=== PATIENT | female | born 1980 | race Caucasian/White ===

== ENCOUNTER → 2018-11-08 15:28 | Outpatient (CLI) | payer OTHER, SELFPAY ==
--- NOTE | 2018-11-08 | DI.MG.S_ITS ---
BILATERAL DIGITAL SCREENING MAMMOGRAM 3D/2D WITH CAD: 11/08/2018 CLINICAL: Routine screening. Baseline exam. No prior exams were available for comparison. The tissue of both breasts is heterogeneously dense. This may lower the sensitivity of mammography. Current study was also evaluated with a Computer Aided Detection (CAD) system. There is an asymmetry in the left breast posterior depth lateral region seen on the craniocaudal view only. There also is an asymmetry in the left breast middle depth superior region seen on the mediolateral oblique view only. No other significant masses, calcifications, or other findings are seen in either breast. IMPRESSION: INCOMPLETE: NEEDS ADDITIONAL IMAGING EVALUATION 1) The asymmetry in the left breast posterior depth lateral region seen on the craniocaudal view only is indeterminate. Additional views with possible ultrasound are recommended. 2) The asymmetry in the left breast middle depth superior region seen on the mediolateral oblique view only is indeterminate. Additional views with possible ultrasound are recommended. This exam was interpreted at Station ID: [id number]. NOTE: For mammograms, a report in lay terms will be sent to the patient. Approximately 15% of breast malignancies will not be visualized mammographically. In the management of a palpable breast mass, a negative mammogram must not discourage biopsy of a clinically suspicious lesion. Electronically Signed By: Zurdo Huertas M.D. ecl/:11/09/2018 04:27:34 letter sent: Additional Imaging Needed ACR BI-RADS Category 0: Incomplete 3340F
== END ==
PROVIDERS: PCP Family Medicine; Visit Provider Family Medicine
DX: Z12.31 Encounter for screening mammogram for malignant neoplasm of breast (principal)
CPT/HCPCS: 77063; 77067

== ENCOUNTER → 2018-11-28 14:42 | Outpatient (CLI) | payer OTHER, SELFPAY ==
--- NOTE | 2018-11-28 14:45 | DI.US.S_ITS ---
LIMITED ULTRASOUND OF LEFT BREAST: 11/28/2018 CLINICAL: Patient returns today to evaluate an architectural distortion in the left breast. Comparison is made to exams dated: 11/28/2018 mammogram and 11/08/2018 mammogram - [facility]. Real-time ultrasound of the left breast upper outer quadrant was performed on the area of interest. IMPRESSION: PROBABLY BENIGN There is no abnormality seen in the left breast to correspond with the mammography findings in the upper outer quadrant. A follow-up mammogram in 6 months is recommended to demonstrate stability of the posterior left mammographic finding. This exam was interpreted at Station ID: [id number]. Electronically Signed By: Jagdeep Sellers M.D. ddp/:11/28/2018 18:02:12 letter sent: Followup Recommended Ultrasound BI-RADS: 3 Probably benign
--- NOTE | 2018-11-28 14:45 | DI.MG.S_ITS ---
UNILATERAL LEFT DIGITAL DIAGNOSTIC MAMMOGRAM 3D/2D WITH ADDITIONAL VIEWS: 11/28/2018 CLINICAL: Additional evaluation requested from prior study. Comparison is made to exam dated: 11/08/2018 [facility]. The tissue of left breast is heterogeneously dense. This may lower the sensitivity of mammography. There is an irregular equal density asymmetry with an indistinct margin in the left breast posterior depth lateral region seen on the craniocaudal view only. This is less prominent. There also is an oval equal density asymmetry with an indistinct margin in the left breast middle depth superior region seen on the mediolateral oblique view only. This is less prominent. No other significant masses or calcifications are seen in the breast. IMPRESSION: INCOMPLETE: NEEDS ADDITIONAL IMAGING EVALUATION The irregular equal density asymmetry in the left breast posterior depth lateral region seen on the craniocaudal view only is indeterminate. An ultrasound is recommended. The oval equal density asymmetry in the left breast middle depth superior region seen on the mediolateral oblique view only is indeterminate. An ultrasound is recommended. This exam was interpreted at Station ID: [id number]. NOTE: For mammograms, a report in lay terms will be sent to the patient. Approximately 15% of breast malignancies will not be visualized mammographically. In the management of a palpable breast mass, a negative mammogram must not discourage biopsy of a clinically suspicious lesion. Electronically Signed By: Jagdeep mack/yvette:11/28/2018 15:08:39 ACR BI-RADS Category 0: Incomplete [id number]
== END ==
PROVIDERS: PCP Family Medicine; Visit Provider Family Medicine
DX: R92.8 Other abnormal and inconclusive findings on diagnostic imaging of breast (principal); N64.89 Other specified disorders of breast
CPT/HCPCS: 76642; 77065; G0279

== ENCOUNTER → 2019-10-28 13:14 | Outpatient (CLI) | payer OTHER, SELFPAY ==
--- NOTE | 2019-10-28 13:20 | DI.MG.S_ITS ---
BILATERAL DIGITAL DIAGNOSTIC MAMMOGRAM 3D/2D SHORT-TERM FOLLOW-UP: 10/28/2019 CLINICAL: Patient returns for a 6 month follow up of the left breast, due for bilateral imaging. Comparison is made to exams dated: 11/28/2018 mammogram and 11/08/2018 mammogram - [facility]. The tissue of both breasts is heterogeneously dense. This may lower the sensitivity of mammography. There is an irregular equal density asymmetry with an indistinct margin in the left breast posterior depth lateral region seen on the craniocaudal view only. This is more prominent. There also is an oval equal density asymmetry with an indistinct margin in the left breast middle depth superior region seen on the mediolateral oblique view only. This is more prominent. No other significant masses, calcifications, or other findings are seen in either breast. IMPRESSION: INCOMPLETE: NEEDS ADDITIONAL IMAGING EVALUATION The irregular equal density asymmetry in the left breast posterior depth lateral region seen on the craniocaudal view only is indeterminate. Targeted ultrasound is recommended and will immediately follow. The oval equal density asymmetry in the left breast middle depth superior region seen on the mediolateral oblique view only is indeterminate. Targeted ultrasound is recommended and will immediately follow. This exam was interpreted at Station ID: [id number]. NOTE: For mammograms, a report in lay terms will be sent to the patient. Approximately 15% of breast malignancies will not be visualized mammographically. In the management of a palpable breast mass, a negative mammogram must not discourage biopsy of a clinically suspicious lesion. Electronically Signed By: Kendrick Yost M.D. slc/:10/28/2019 13:51:29 ACR BI-RADS Category 0: Incomplete 3340F
--- NOTE | 2019-10-28 13:20 | DI.US.S_ITS ---
LIMITED ULTRASOUND OF LEFT BREAST: 10/28/2019 CLINICAL: Patient returns today to evaluate a focal asymmetry in the left breast. Comparison is made to exams dated: 11/28/2018 ultrasound, 11/28/2018 mammogram, 11/08/2018 mammogram, and 10/28/2019 mammogram - [facility]. Color flow and real-time ultrasound of the left breast upper outer quadrant were performed. Antonio scale images of the real-time examination were reviewed. No significant abnormalities were seen sonographically in the left breast upper outer quadrant in the region of the asymmetries seen on mammogram. IMPRESSION: PROBABLY BENIGN No sonographic evidence of malignancy. Exam findings were conveyed to the patient by the cloth bale header. A follow-up mammogram and possible ultrasound in 6 months is recommended to demonstrate stability. This exam was interpreted at Station ID: [id number]. Electronically Signed By: Kendrick Yost M.D. slc/:10/28/2019 14:10:16 letter sent: Followup Recommended Ultrasound BI-RADS: 3 Probably benign
== END ==
PROVIDERS: PCP Family Medicine; Referring Provider Family Medicine; Visit Provider Family Medicine
DX: R92.8 Other abnormal and inconclusive findings on diagnostic imaging of breast (principal); N64.89 Other specified disorders of breast
CPT/HCPCS: 76642; 77066; G0279

== ENCOUNTER → 2020-06-18 14:28 | Outpatient (CLI) | payer OTHER, SELFPAY ==
--- NOTE | 2020-06-18 14:29 | DI.MG.S_ITS ---
UNILATERAL LEFT DIGITAL DIAGNOSTIC MAMMOGRAM 3D/2D SHORT-TERM FOLLOW-UP: 06/18/2020 CLINICAL: Short term follow up for the left breast. Comparison is made to exams dated: 10/28/2019 mammogram, 11/28/2018 mammogram, 11/08/2018 mammogram, 10/28/2019 ultrasound, and 11/28/2018 ultrasound - [facility]. The tissue of left breast is heterogeneously dense. This may lower the sensitivity of mammography. There is an irregular equal density asymmetry in the left breast posterior depth lateral region seen on the craniocaudal view only. This is not significantly changed and was not seen on the prior ultrasound. There also is an equal density asymmetry with an indistinct margin in the left breast middle depth superior region seen on the mediolateral oblique view only. This is less prominent and was not seen on the prior ultrasound. No other significant masses or calcifications are seen in the breast. IMPRESSION: PROBABLY BENIGN The irregular equal density asymmetry in the left breast posterior depth lateral region seen on the craniocaudal view only is probably benign. The equal density asymmetry in the left breast middle depth superior region seen on the mediolateral oblique view only is probably benign. A follow-up mammogram in 6 months is recommended to demonstrate stability. This exam was interpreted at Station ID: [id number]. NOTE: For mammograms, a report in lay terms will be sent to the patient. Approximately 15% of breast malignancies will not be visualized mammographically. In the management of a palpable breast mass, a negative mammogram must not discourage biopsy of a clinically suspicious lesion. Electronically Signed By: Paul bowers/yvette:06/18/2020 14:54:53 letter sent: Followup Recommended ACR BI-RADS Category 3: Probably benign [id number]
== END ==
PROVIDERS: PCP Family Medicine; Referring Provider Family Medicine; Visit Provider Family Medicine
DX: R92.8 Other abnormal and inconclusive findings on diagnostic imaging of breast (principal)
CPT/HCPCS: 77065; G0279

== ENCOUNTER → 2021-04-07 17:24 | Outpatient (CLI) | payer OTHER, SELFPAY ==
[2021-04-07 19:32] LABS: COVID19 -Nasal RAPID Negative (Negative)
== END ==
PROVIDERS: PCP Family Medicine; Visit Provider Physician Assistant
DX: Z20.822 Contact with and (suspected) exposure to COVID-19 (principal)
CPT/HCPCS: 87635

== ENCOUNTER 2021-05-03 04:33 | Emergency (ER) | payer OTHER, SELFPAY ==
[2021-05-03] VITALS (8 sets, daily range): BP systolic 105–136; BP diastolic 73–81; PULSE 88–129; RESP 20–22; TEMP 36.3; O2SAT 95–98; BMI 27.3
--- NOTE | 2021-05-03 04:47 | ED_ITS ---
HPI - Chest Pain General Chief Complaint: Chest Pain Stated Complaint: pain in mid chest/upper stomach Time Seen by Provider: 05/03/21 04:36 Source: patient Mode of arrival: Ambulatory Limitations: no limitations History of Present Illness HPI narrative: Patient is a 41-year-old female here for evaluation epigastric abdominal pain and nausea. She states that the symptoms have been there for the past 24-48 hours. This started after she ate some pizza. Had nausea but no vomiting. Also has had some problems with constipation. No fevers. No recent travel. No urinary symptoms. No prior abdominal surgeries. Related Data Previous Rx's Medication Instructions Recorded estradiol 1 gram VAGINAL .1-2XW PRN #42.5 11/29/19 gram estradiol 10 mcg vaginal tablet 10 mcg VAGINAL 2XW #8 tab 06/30/20 (Yuvafem) ciprofloxacin HCl 500 mg tablet 500 mg PO BID 10 Days #20 tab 05/03/21 hydrocodone 5 mg-acetaminophen 325 1 tab PO Q8H PRN #7 tab 05/03/21 mg tablet metronidazole 500 mg tablet 500 mg PO TID 10 Days #30 tab 05/03/21 (Flagyl) ondansetron 4 mg disintegrating 4 mg PO Q6H PRN #14 tab 05/03/21 tablet Allergies Allergy/AdvReac Type Severity Reaction Status Date / Time No Known Drug Allergies Allergy Unverified 06/30/20 16:09 Review of Systems Constitutional Constitutional: Denies fever(s) Cardiovascular Cardiovascular: Denies chest pain and Denies dyspnea Respiratory Respiratory: Denies dyspnea Gastrointestinal Gastrointestinal: Reports as per HPI and Reports system reviewed and no additional complaints, except as documented Genitourinary Genitourinary: Reports system reviewed and no additional complaints, except as documented Musculoskeletal Musculoskeletal: Reports system reviewed and no additional complaints, except as documented Integumentary/Breasts Skin/Breast: Reports system reviewed and no additional complaints, except as documented Neurologic Neurologic: Reports system reviewed and no additional complaints, except as documented Hematologic/Lymphatic On Anticoagulants: No Patient History Medical History Bacterial conjunctivitis of right eye Social History Smoking Status: Never smoker Smoking Status: Never smoker alcohol intake frequency: 0-2 drinks per day Substance Use Type: does not use Exam Initial Vital Signs Initial Vital Signs: Vital Signs Temperature 97.3 F L 05/03/21 04:44 Pulse Rate 129 H 05/03/21 04:44 Respiratory Rate 20 05/03/21 04:44 Blood Pressure 136/76 05/03/21 04:44 Pulse Oximetry 97 05/03/21 04:44 HENMT Head: normal to inspection and normocephalic Resp Effort & Inspection: normal respiratory effort Auscultation: clear to auscultation bilaterally Cardio Rate: regular rate Rhythm: regular rhythm GI Inspection: normal to inspection Palpation: soft and tender (Right upper quadrant with positive Sood sign) Back/Spine/Pelvis Back: No CVA tenderness Skin General: no rashes or lesions noted Neuro General: patient alert, patient awake, patient oriented x3 and moves all extremities Extrem General: normal to inspection and capillary refill normal Psych Appearance: grossly normal Course Orders Ordered: ED Orders 05/03/21 04:49 EKG-12 Lead Stat 05/03/21 04:54 Complete Blood Count AUTO DIFF Stat Comprehensive Metabolic Panel Stat Lipase Stat Troponin & CK Cardiac Panel Stat 05/03/21 04:56 US abdomen limited Stat 05/03/21 06:19 CT abdomen pelvis w con Stat Urine Microscopic Stat 05/03/21 06:20 Ictotest Urine Stat Urine Culture Stat Sodium Chloride (Normal Saline 0.9%) 1,000 mls @ 1,000 mls/hr IV BOLUS ONE Stop: 05/03/21 07:17 Last Admin: 05/03/21 06:25 Dose: 1,000 mls/hr Documented by: JASS Discontinued Medications Ciprofloxacin (Ciprofloxacin 250 Mg Tablet) 500 mg PO NOW ONE Stop: 05/03/21 07:11 Metronidazole (Metronidazole 500 Mg Tablet) 500 mg PO NOW ONE Stop: 05/03/21 07:11 Morphine Sulfate (Morphine 4 Mg/Ml Inj) 4 mg IV NOW ONE Stop: 05/03/21 06:44 Last Admin: 05/03/21 06:50 Dose: 4 mg Documented by: JASS Ondansetron HCl (Ondansetron 4 Mg/2 Ml Inj) 4 mg IV NOW ONE Stop: 05/03/21 06:44 Last Admin: 05/03/21 06:49 Dose: 4 mg Documented by: JASS Vital Signs Vital signs: Vital Signs - 8 hr 05/03/21 04:44 05/03/21 04:50 05/03/21 05:00 Temperature 97.3 F L Pulse Rate 129 H 92 H 91 H Respiratory Rate 20 22 Blood Pressure 136/76 126/74 Pulse Oximetry 97 97 96 05/03/21 05:30 05/03/21 06:00 05/03/21 06:40 Temperature Pulse Rate 88 98 H 89 Respiratory Rate 22 Blood Pressure 116/73 105/81 Pulse Oximetry 96 98 95 05/03/21 06:42 Temperature Pulse Rate 90 Respiratory Rate Blood Pressure 123/74 Pulse Oximetry 96 MDM - Chest Pain Lab Data Attestation: I reviewed the patient's lab results. Result diagrams: 05/03/21 04:54 05/03/21 04:54 Labs: Lab Results 05/03/21 05/03/21 05/03/21 Range/Units 04:54 04:54 06:19 WBC 18.3 H (4.5-11.0) X10^3/uL RBC 4.85 (4.0-5.2) X10^6/uL Hgb 14.9 (12.0-16.0) g/dL Hct 43.8 (36-46) % MCV 90.3 (80-100) fL MCH 30.8 (26-34) PG MCHC 34.1 (30-36) % RDW 13.7 (11.6-14.8) % Plt Count 303 (150-400) X10^3/uL Neut % (Auto) 84.8 H (50-75) % Lymph % (Auto) 7.2 L (25-40) % [place] % (Auto) 7.2 (3-14) % Eos % (Auto) 0.4 L (2-4) % Baso % (Auto) 0.4 (0-2) % Neut # (Auto) 96224 H (7565-9552) /uL Lymph # (Auto) 1300 (5151-9107) /uL [place] # (Auto) 1300 H (0-900) /uL Eos # (Auto) 100 (0-450) /uL Baso # (Auto) 100 (0-100) /uL Sodium 136 L (137-145) mmol/L Potassium 3.8 (3.4-5.1) mmol/L Chloride 103 (98-107) mmol/L Carbon Dioxide 21 L (22-32) mmol/L BUN 8 (7-17) mg/dL Creatinine 0.87 (0.52-1.04) mg/dL Estimated GFR > 60.0 (>60) mL/min BUN/Creatinine Ratio 9.2 (6-22) Glucose 125 H (70-100) mg/dL Calcium 9.4 (8.4-10.2) mg/dL Total Bilirubin 1.2 (0.2-1.3) mg/dL AST 19 (14-36) IU/L ALT 26 (<35) IU/L Alkaline Phosphatase 87 (38-126) U/L Total Creatine Kinase 30 (30-135) U/L CK-MB (CK-2) TNP CK-MB (CK-2) Rel Index TNP Troponin I < 0.012 (0.01-0.034) ng/mL Total Protein 7.6 (6.3-8.2) g/dL Albumin 4.6 (3.5-5.0) g/dL Globulin 3.0 (1.7-4.1) g/dL Albumin/Globulin Ratio 1.5 (1.0-2.8) Lipase 25 (23-300) U/L Ur Bilirubin Confirm (Negative) Urine RBC 1-5/hpf (0-5/HPF) Urine WBC 1-5/hpf (0-5/HPF) Ur Squamous Epith Cells 10-30 /hpf H (0-5/HPF) Urine Bacteria Moderate (10-30) H (None) Urine Mucus 3+ H (Negative) Ur Culture Indicated? Culture not indicate 05/03/21 Range/Units 06:20 WBC (4.5-11.0) X10^3/uL RBC (4.0-5.2) X10^6/uL Hgb (12.0-16.0) g/dL Hct (36-46) % MCV (80-100) fL MCH (26-34) PG MCHC (30-36) % RDW (11.6-14.8) % Plt Count (150-400) X10^3/uL Neut % (Auto) (50-75) % Lymph % (Auto) (25-40) % [place] % (Auto) (3-14) % Eos % (Auto) (2-4) % Baso % (Auto) (0-2) % Neut # (Auto) (6942-2392) /uL Lymph # (Auto) (4730-5576) /uL [place] # (Auto) (0-900) /uL Eos # (Auto) (0-450) /uL Baso # (Auto) (0-100) /uL Sodium (137-145) mmol/L Potassium (3.4-5.1) mmol/L Chloride (98-107) mmol/L Carbon Dioxide (22-32) mmol/L BUN (7-17) mg/dL Creatinine (0.52-1.04) mg/dL Estimated GFR (>60) mL/min BUN/Creatinine Ratio (6-22) Glucose (70-100) mg/dL Calcium (8.4-10.2) mg/dL Total Bilirubin (0.2-1.3) mg/dL AST (14-36) IU/L ALT (<35) IU/L Alkaline Phosphatase (38-126) U/L Total Creatine Kinase (30-135) U/L CK-MB (CK-2) CK-MB (CK-2) Rel Index Troponin I (0.01-0.034) ng/mL Total Protein (6.3-8.2) g/dL Albumin (3.5-5.0) g/dL Globulin (1.7-4.1) g/dL Albumin/Globulin Ratio (1.0-2.8) Lipase (23-300) U/L Ur Bilirubin Confirm Positive H (Negative) Urine RBC (0-5/HPF) Urine WBC (0-5/HPF) Ur Squamous Epith Cells (0-5/HPF) Urine Bacteria (None) Urine Mucus (Negative) Ur Culture Indicated? Point of Care Testing Test Results Negative Urine Dip Bedside Urine Glucose Negative Bedside Urine Bilirubin + 1 Bedside Urine Ketone +++ 80 Urine Specific [facility] 1.030 Bedside Urine Occult Blood +/- Bedside Urine pH 6 Bedside Urine Protein + 30 Bedside Urine Urobilinogen +/- 1mg Bedside Urine Nitrite - Negative Bedside Urine Leukocytes +/- [address] scan - abdomen/pelvis: Radiologist's Impression: Acute diverticulitis involving the distal transverse colon and hepatic flexure. There is no associated bowel perforation or abscess formation. ECG Data Attestation: I personally reviewed and interpreted this ECG as follows: Interpretation: Sinus rhythm Ventricular rate 93 Normal QRS Normal QTC No ST T wave changes MDM Narrative Medical decision making narrative: Patient was initially tachycardic upon arrival but this improved. I feel that this was related to pain. She is afebrile. Initially had concern about gallbladder disease given the location of her discomfort however her liver function tests and lipase were unremarkable. Right upper quadrant ultrasound did not show any signs of acute cholecystitis. Does have leukocytosis. CT scan was ordered. Showed diverticulitis without signs of abscess. This does explain the nature of her symptoms. Plan will be to start her on antibiotics. She was given care instructions and return precautions. She expressed understanding and agreement. Discharge Plan Departure Patient Disposition: Home Clinical Impression: Diverticulitis Instructions: DI for Diverticulitis Prescriptions: New ciprofloxacin HCl 500 mg tablet 500 mg PO BID 10 Days Qty: 20 RF: 0 metronidazole [Flagyl] 500 mg tablet 500 mg PO TID 10 Days Qty: 30 RF: 0 ondansetron 4 mg tablet,disintegrating 4 mg PO Q6H PRN (Reason: nausea and vomiting) Qty: 14 RF: 0 hydrocodone-acetaminophen 5-325 mg tablet 1 tab PO Q8H PRN (Reason: pain) Qty: 7 RF: 0 No Action estradiol 0.01 % (0.1 mg/gram) cream 1 gram vaginal .1-2XW PRN (Reason: Atrophy) Qty: 42.5 RF: 1 estradiol [Yuvafem] 10 mcg tablet 10 mcg vaginal 2XW Qty: 8 RF: 6 Referrals: Bib Sánchez MD [Primary Care Provider] -
--- NOTE | 2021-05-03 04:56 | DI.US.S_ITS ---
PROCEDURE: US ABDOMEN LIMITED INDICATIONS: RIGHT UPPER QUADRANT PAIN TECHNIQUE: Real-time focused scanning was performed of the abdomen, with image documentation. COMPARISON: None. FINDINGS: No discrete hepatic mass identified. There is suggestion of mild intrahepatic biliary ductal dilatation centrally. Gallbladder demonstrates no stones, wall thickening, or pericholecystic fluid. There is suspected mild intrahepatic biliary ductal dilatation centrally. The common bile duct is at the upper limits of normal at the pancreatic head measuring up to approximately 7 mm. The visualized pancreas appears unremarkable sonographically, with the pancreatic body and tail not well seen. No visualized free fluid in the right upper quadrant. IMPRESSION: 1. Suspected mild intrahepatic biliary ductal dilatation centrally of indeterminate etiology. Further evaluation may be obtained with a contrast enhanced MRCP if clinically indicated. Dictated by: Jagdeep Sellers M.D. on 05/03/2021 at 8:48 Approved by: Jagdeep Sellers M.D. on 05/03/2021 at 8:50
[2021-05-03 05:04] LABS: Add Manual Diff / Slide Review NO; Basophils Absolute Auto 100 /uL (0-100); Basophils Percent Auto 0.4 % (0-2); Eosinophils Absolute Auto 100 /uL (0-450); Eosinophils Percent Auto 0.4 % (2-4); Hematocrit 43.8 % (36-46); Hemoglobin 14.9 g/dL (12.0-16.0); Lymphocytes Absolute Auto 1300 /uL (1100-4500); Lymphocytes Percent Auto 7.2 % (25-40); Mean Corpuscular HGB Conc 34.1 % (30-36); Mean Corpuscular Hemoglobin 30.8 PG (26-34); Mean Corpuscular Volume 90.3 fL (80-100); Monocytes Absolute Auto 1300 /uL (0-900); Monocytes Percent Auto 7.2 % (3-14); Neutrophils Absolute Auto 15500 /uL (1500-7000); Neutrophils Percent Auto 84.8 % (50-75); Platelet Count 303 X10^3/uL (150-400); Red Blood Cell Count 4.85 X10^6/uL (4.0-5.2); Red Cell Distribution Width 13.7 % (11.6-14.8); White Blood Cell Count 18.3 X10^3/uL (4.5-11.0)
[2021-05-03 05:13] LABS: Alanine Aminotransferase 26 IU/L (<35); Albumin 4.6 g/dL (3.5-5.0); Albumin Globulin Ratio 1.5 (1.0-2.8); Alkaline Phosphatase 87 U/L (38-126); Aspartate Aminotransferase 19 IU/L (14-36); BUN Creatinine Ratio 9.2 (6-22); Bilirubin Total 1.2 mg/dL (0.2-1.3); Blood Urea Nitrogen 8 mg/dL (7-17); Calcium 9.4 mg/dL (8.4-10.2); Carbon Dioxide 21 mmol/L (22-32); Chloride 103 mmol/L (98-107); Creatine Kinase 30 U/L (30-135); Estimated Glomerular Filt Rate > 60.0 mL/min (>60); Glucose 125 mg/dL (70-100); HEMOLYSIS < 15 (0-50); Lipase 25 U/L (23-300); Potassium 3.8 mmol/L (3.4-5.1); Sodium 136 mmol/L (137-145); Total Protein 7.6 g/dL (6.3-8.2)
[2021-05-03 05:25] LABS: Troponin I < 0.012 ng/mL (0.01-0.034)
--- NOTE | 2021-05-03 06:19 | DI.CT.S_ITS ---
PROCEDURE: CT ABDOMEN PELVIS W CON INDICATIONS: Left-sided abdominal pain TECHNIQUE: After the administration of oral and IV contrast, axial sections were acquired from the lung bases to the pubic symphysis. Coronal and sagittal reformats were performed. For radiation dose reduction, the following was used: automated exposure control, adjustment of mA and/or kV according to patient size. COMPARISON: None. FINDINGS: Image quality: Excellent. Lung bases: There is minimal dependent atelectasis. Heart: No significant findings. ABDOMEN: Liver: Unremarkable. Gallbladder: Unremarkable. Biliary ducts: Unremarkable. Pancreas: Unremarkable. Spleen: Unremarkable. Adrenal Glands: Unremarkable. Kidneys and Ureters: Unremarkable. Stomach and Bowel: There is mild gastric wall thickening which may be reactive secondary to adjacent inflammatory changes or reflect a mild gastritis. Small bowel loops are normal in caliber and wall thickness. The appendix is not discretely well visualized but no definite abnormal inflamed appendix is identified to suggest acute appendicitis. There is colonic diverticulosis with associated diverticular and segmental colonic wall thickening in the distal transverse colon with associated pericolonic fat stranding and fluid. Findings are consistent with acute diverticulitis involving the distal transverse and proximal descending colon centered at the splenic flexure. The remainder of the colon is normal in caliber and wall thickness. Peritoneum: There is a small amount of intraperitoneal free fluid in the left upper quadrant and pelvis. No macroscopic free air. No discrete peripherally enhancing loculated fluid collections to suggest an abscess. Ventral Wall: No hernia. Abdominal Nodes: No retroperitoneal or mesenteric adenopathy by size criteria. Vessels: Aorta and inferior vena cava are normal in size. PELVIS: Pelvic Organs: The uterus is mildly enlarged and heterogeneous in enhancement likely reflecting physiologic changes. A small peripherally enhancing cyst in the left ovary measuring up to 1.9 cm likely represents a corpus luteal cyst. Bladder: Unremarkable. Pelvic Nodes: No enlarged lymph nodes. Miscellaneous: No inguinal hernias are seen. Bones: Unremarkable. IMPRESSION: 1. Acute diverticulitis in the distal transverse colon with associated segmental colitis involving the distal transverse and proximal descending colon centered at the splenic flexure. No definite diverticular abscess or macroscopic free air. Concordant with preliminary interpretation. Dictated by: Jagdeep Sellers M.D. on 05/03/2021 at 8:34 Approved by: Jagdeep Sellers M.D. on 05/03/2021 at 8:43
[2021-05-03 06:24] LABS: Ictotest Urine Positive (Negative)
[2021-05-03] MEDS: SODIUM CHLORIDE 0.9% 1,000 ML 1000 ML IV (06:25)
[2021-05-03 06:35] LABS: Bacteria Urine Moderate (10-30); Mucus Urine 3+ (Negative); RBC Urine 1-5/HPF (0-5/HPF); Squamous Epithelial Cell Urine 10-30 /HPF (0-5/HPF); WBC Urine 1-5/HPF (0-5/HPF)
[2021-05-03] MEDS: ONDANSETRON 4 MG/2 ML INJ IV (06:49)
[2021-05-03] MEDS: MORPHINE 4 MG/ML INJ IV (06:50)
[2021-05-03] MEDS: metroNIDAZOLE 500 MG TABLET PO (07:23)
[2021-05-03] MEDS: CIPROFLOXACIN 250 MG TABLET 500 MG PO (07:23)
--- NOTE | 2021-05-03 19:48 | PC.NURSE ---
Pt called to state that her prescribed [place] 1 tab Q8 hours is not controlling her pain. I consulted with Dr Barbosa who advised that pt can also take ibuprofen, and can increase [place] to 1 tab Q 4 hours or 2 tabs Q6 hours. Pt educated and agreed.
== END 2021-05-03 07:42 | disposition home or self-care (01) ==
PROVIDERS: Emergency Provider Emergency Medicine; PCP Family Medicine
DX: K57.92 Diverticulitis of intestine, part unspecified, without perforation or abscess without bleeding (principal); R11.0 Nausea; R07.9 Chest pain, unspecified
CPT/HCPCS: 36415; 74177; 76705; 80053; 81003; 81015; 81025; 82550; 83690; 84484; 85025; 87086; 93005; 96361; 96374; 96375; 99285; J2270; J2405; Q9967

== ENCOUNTER → 2021-09-06 17:14 | Outpatient (ROUT) | payer OTHER, SELFPAY ==
[2021-09-06 19:51] LABS: COVID-19 CEPHEID PCR (VTM/NP) Negative (Negative)
== END ==
PROVIDERS: PCP Family Medicine; Visit Provider Family Medicine
DX: Z11.52 Encounter for screening for COVID-19 (principal); Z20.822 Contact with and (suspected) exposure to COVID-19
CPT/HCPCS: U0003; U0005

== ENCOUNTER → 2024-02-13 15:12 | Outpatient (CLI) | payer OTHER, SELFPAY ==
--- NOTE | 2024-02-13 15:14 | DI.MG.S_ITS ---
BILATERAL DIGITAL SCREENING MAMMOGRAM 3D/2D WITH CAD: 02/13/2024 CLINICAL: Routine screening. Comparison is made to exams dated: 10/28/2019 mammogram and 11/08/2018 mammogram - [facility]. Both breasts are heterogeneously dense, which may obscure small masses (category c / 51-75% glandular tissue). Current study was also evaluated with a Computer Aided Detection (CAD) system. No significant masses, calcifications, or other findings are seen in either breast. There has been no significant interval change. IMPRESSION: NEGATIVE There is no mammographic evidence of malignancy. A 1 year screening mammogram is recommended. Based on the Tyrer Cuzick model (a risk assessment model) the patient's lifetime risk is 11.7% and her 10 year risk is 2.3%. According to the ACR, ACS, and NCCN guidelines, an annual breast MRI exam along with mammogram is recommended if the patient's lifetime risk is 20% or greater. This exam was interpreted at Station ID: [id number]. NOTE: For mammograms, a report in lay terms will be sent to the patient. Approximately 15% of breast malignancies will not be visualized mammographically. In the management of a palpable breast mass, a negative mammogram must not discourage biopsy of a clinically suspicious lesion. Electronically Signed By: William victoria/yvette:02/15/2024 14:15:28 letter sent: Normal Exam ACR BI-RADS Category 1: Negative [id number]
== END ==
PROVIDERS: PCP Family Medicine; Referring Provider Family Medicine; Visit Provider Family Medicine
DX: Z12.31 Encounter for screening mammogram for malignant neoplasm of breast (principal); R92.333 Mammographic heterogeneous density, bilateral breasts
CPT/HCPCS: 77063; 77067

== ENCOUNTER → 2025-07-09 15:28 | Outpatient (CLI) | payer OTHER, SELFPAY | PROVIDERS: PCP Family Medicine; Visit Provider Obstetrics & Gynecology | DX: N89.8 Other specified noninflammatory disorders of vagina (principal) | CPT/HCPCS: 87070; 87205 ==